=== PATIENT | female | born 1955 | race Caucasian/White ===

== ENCOUNTER 2017-02-09 16:29 | Emergency (ER) | payer OTHER ==
[~2017-02-09] VITALS: Ht 162.6 cm; Wt 71.5 kg
[2017-02-09 16:54] VITALS: Ht 162.6 cm; Wt 71.5 kg
[2017-02-09] MEDS ORDERED: POLYMYXIN/TRIMETHOPRIM 10 ML OPH LEFT EYE ONE (17:30)
[2017-02-09] MEDS ORDERED: POLY10DR19 LEFT EYE (17:49)
[2017-02-09] MEDS ORDERED: KETO5DRO58 OP (17:49)
--- NOTE | 2017-02-09 20:47 | ERD ---
ER Documentation Chief Complaint Date/Time DATE: 02/09/17 TIME: 20:42 Chief Complaint left eye itchy/swollen x 1 day HPI 61-year-old female complaining of left eye itching and swelling 1 day. Patient stated that she woke up this morning with itching and burning sensation of the left eye, as well as swollen left upper eyelid. Denies fever or chills. Denies cough or runny nose. Denies blurry vision. ROS All systems reviewed and are negative except as per history of present illness. Medications Home Meds Active Scripts Ketotifen Fumarate (ZADITOR) 5 Ml Drops, 1 DROP OP Q12 Y for ITCHING, #1 BOTTLE Prov:ANNIE MCCARTHY. [employer] 02/09/17 Polymyxin B Sulfate-TMP* (Polymyxin B-TMP Eye Drops*) 10 Ml Drops, 1 DROP LEFT EYE QID for 7 Days, EA Prov:ANNIE MCCARTHY. [employer] 02/09/17 Allergies Allergies: Coded Allergies: No Known Allergy (Unverified , 02/09/17) PMhx/Soc History of Surgery: Yes (gastric bypass, sholder surg) Anesthesia Reaction: No Hx Neurological Disorder: No Hx Respiratory Disorders: No Hx Cardiac Disorders: No Hx Psychiatric Problems: No Hx Miscellaneous Medical Probl: No Hx Alcohol Use: No Hx Substance Use: No Hx Tobacco Use: No Smoking Status: Never smoker Physical Exam Vitals Vital Signs Date Time Temp Pulse Resp B/P Pulse Ox O2 Delivery O2 Flow Rate FiO2 02/09/17 16:54 98.0 67 18 132/89 97 Physical Exam General impression: Well-developed, well-nourished. Alert, oriented, in no acute distress Head: Normocephalic, atraumatic. Eyes: PERRL, EOM normal. Sclerae are normal. Left upper eyelid mildly erythematous and swollen. No ptosis. Mild injection noted in the left conjunctiva. No exudates. ENT: External canals patent. TM'sclear. Nasal mucosa, oral mucosa and oropharynx are normal. Neck: Supple, nontender. No lymphadenopathy. No nuchal rigidity. Respiration: Normal respiratory effort. Lungs clear to auscultate bilaterally. No wheezes, rales or rhonchi. Cardiovascular: Regular rate and rhythm. No murmurs or extra heart sounds. Abdomen: Abdomen normal to inspection. Nontender. No masses or organomegaly. Bowel sounds normal. Back: Normal to inspection. No midline spine tenderness. No CVA tenderness. Extremities: Extremities normal to inspection, nontender. ROM normal. Neuro: Mental status normal, speech normal. [employer]CH[employer]ICIAN grossly intact. Skin: Normal turgor. No rash or lesions. Psych: Normal mood and affect. Results 24 hrs Current Medications Medications (Trade) Dose Ordered Sig/Rosa Maria Route PRN Reason Start Time Stop Time Status Last Admin Dose Admin Polymyxin/ Trimethoprim Sulfate (Polytrim Oph) 1 drop ONCE ONCE LEFT EYE 02/09/17 17:30 02/09/17 17:31 DC 02/09/17 17:53 Procedures/MDM Well-appearing 61-year-old female presented ED was left eye burning and itching 1 day. Patient symptoms are consistent with conjunctivitis, bacterial versus viral versus allergic. I doubt preop orbital or orbital cellulitis. Patient appears well, stable for discharge and outpatient management. Medical decision making shared with patient and family. Education provided to patient and family. Patient and family expressed understanding of the plan. Medications on discharge: Zaditor ophthalmic, Polytrim ophthalmic.. Follow-up: Primary care provider in 2-3 days or return to ED if worse. Departure Diagnosis: Primary Impression: Conjunctivitis Condition: Good Patient Instructions: What Is Conjunctivitis? Referrals: [facility] YOU HAVE RECEIVED A MEDICAL SCREENING EXAM AND THE RESULTS INDICATE THAT YOU DO NOT HAVE A CONDITION THAT REQUIRES URGENT TREATMENT IN THE EMERGENCY DEPARTMENT. FURTHER EVALUATION AND TREATMENT OF YOUR CONDITION CAN WAIT UNTIL YOU ARE SEEN IN YOUR DOCTORS OFFICE WITHIN THE NEXT 1-2 DAYS. IT IS YOUR RESPONSIBILITY TO MAKE AN APPOINTMENT FOR FOLOW-UP CARE. IF YOU HAVE A PRIMARY DOCTOR --you should call your primary doctor and schedule an appointment IF YOU DO NOT HAVE A PRIMARY DOCTOR YOU CAN CALL OUR PHYSICIAN REFERRAL HOTLINE AT IF YOU CAN NOT AFFORD TO SEE A PHYSICIAN YOU CAN CHOSE FROM THE FOLLOWING [facility] [address] [facility] [address] [facility] [address] [facility] [address] [facility] [address] [facility]. [facility] [address] [facility] [place] Hours: Mon - Fri 9:00 AM - 5:00 PM Additional Instructions: Call your primary care doctor TOMORROW for an appointment during the next 2-3 days.See the doctor sooner or return here if your condition worsens before your appointment time. ANNIE MCCARTHY NP Feb 09, 2017 20:47
== END 2017-02-09 17:57 | disposition home or self-care (01) ==
LOC: FTE 16:29
DX: H10.9 Unspecified conjunctivitis (principal)
CPT/HCPCS: 99283